=== PATIENT | male | born 1980 | race Caucasian/White ===

== ENCOUNTER 2016-07-13 13:19 | Inpatient (IN) | payer OTHER ==
[~2016-07-13] VITALS: Ht 182.9 cm; Wt 78.6 kg
[2016-07-13 13:20] VITALS: BP 124/81; PULSE 96; RESP 15; O2SAT 97
[2016-07-13] MEDS ORDERED: CEPH500C PO (13:24)
[2016-07-13] MEDS ORDERED: SULF1TAB7 PO (13:24)
[2016-07-13] MEDS ORDERED: Buprenorphine 2 mg SL Tablet SL ONE (14:50)
[2016-07-13 15:06] LABS: BASOPHILS % (AUTO) 0.5 % (0-3); EOSINOPHILS % (AUTO) 2.1 % (0-5); MONOCYTES % (AUTO) 12.3 % (4-12); Mean Corpuscular Volume 82.8 fL (81-100); NEUTROPHILS % (AUTO) 55.2 % (40-74); Platelet Count 324 bil/L (150-400)
--- NOTE | 2016-07-13 15:10 | ED.REPORT ---
HPI-Extremity Problem Lower Date of Service Jul 13, 2016 ED Provider: Brett Munson MD Patient is a 35 year old male who presents to the ED referred from Urgent Care complaining of L leg swelling onset 10 days ago. On 07/02/16 he was working on a barbed wire fence and obtained an abrasion across his L ankle. When he woke up the next day he had redness, pain, and swelling that progressively got worse. He was diagnosed with Cellulitus on 07/03/16 at Urgent Care and was treated with Keflex and Bactrim. He reports that his symptoms were clearing until 5 days ago when he was on his feet for an extended period of time and his swelling was exacerbated. He has tried to keep his leg elevated and stay off his feet to help reduce his swelling but his symptoms have persisted. Associated symptoms include L leg pain, subjective fevers, trouble walking, and diaphoresis . He denies chills, numbness, or any other symptoms. His US at Urgent Care did not show any blood clots. Patient is requesting admission with IV abx. He has had cellulitis from a bee sting 9 years ago that cleared without difficulty after several days of antibiotics. He does not know when his last tetanus shot was. Patient is also on diclofenac. Nursing Notes Stated Complaint: POSSIBLE CELLULITIS Chief Complaint: Extremity Trauma Nursing Notes Reviewed: Yes ([employer], [employer] reconciled for ABX - patient is on Suboxone 12/27 2x/day + ) Allergies: Coded Allergies: No Known Allergies (Verified Allergy, Unknown, 07/13/16) Scheduled Cephalexin (Cephalexin) 500 Mg Capsule 500 MG PO QID Sulfamethoxazole/Trimeth 800-160 mg (Bactrim DS) 1 Each Tablet 1 TABLET PO BID General Time Seen by MD: 15:04 Chief Complaint Leg injury left Hx Obtained From: Patient Arrived By: Walk-in Similar Sx Previous: Yes Past Medical History Past Medical History Notes: Patient been treated with Keflex and Bactrim since July 03 Past Medical History Current back pain per EMR Seizure in 2013 Ho narcotic abuse (no ho IVDA, now on suboxone maintenance from Dr. Derik Alonso) Past Surgical History Denies Smoking History Never Smoker, Unknown if Ever Smoker Social History hx of narcotic dependecy on stable Suboxone use. Denies IV drug use. Drug Use: Other Other Social History: Smokeless tobacco, Good social support Ambulatory Status Crutches Review of Systems Constitutional: Reports: Fever (Subjective ), Denies: Chills Musculoskeletal: Reports: Extremity pain (LLE), Extremity swelling (LLE) Skin: Reports Diaphoresis Neurologic: Reports: Problem walking, Denies: Numbness Complete sys rev & neg: except as marked. Physical Exam Initial Vital Signs Vital Signs (First) Date Time Temp Pulse Resp B/P Pulse Ox O2 Delivery O2 Flow Rate FiO2 07/13/16 13:20 36.3 96 15 124/81 97 Room Air Initial VS: Reviewed Head / Eyes: Atraumatic, Normocephalic Respiratory: No respiratory distress Cardiovascular: Intact distal pulses Skin: Warm, Dry Neurologic: Alert, Oriented, Nonfocal Psychiatric: Mood/affect normal, Behavior normal, Normal thought content Left Leg / Calf: Positive: Swelling present... Left mid calf through foot swollen and edematous. No redness, open wounds, or warmth. No surface cellulites. Tender throughout foot and ankle with mild tenderness over Achilles. Reduces dorsal plantar flexion. Good pulses. Difficultly bearing weight. Left Ankle: Positive: Swelling present..., Tenderness present... General/Constitutional: Awake, Alert, Well appearing Interpretation & Diagnostics Interpretation & Diagnostics: Duplex US today at Urgent Care negative for DVT Lab Results Interpretation Result Diagram: 07/13/16 1445 07/13/16 1445 Test 07/13/16 14:45 White Blood Count 3.8th/mm3 (3.8-10.1) Red Blood Count 4.72mil/mm3 (4.40-5.80) Hemoglobin 13.7g/dL (13.8-17.2) Hematocrit 39.1% (41.0-50.0) Mean Corpuscular Volume 82.8fL (81-100) Mean Corpuscular Hemoglobin 29.0pg (27.0-35.0) Mean Corpuscular Hemoglobin Concent 35.0% (32.0-37.0) Red Cell Distribution Width 12.5% (12.3-15.4) Platelet Count 324bil/L (150-400) Neutrophils (%) (Auto) 55.2% (40-74) Lymphocytes (%) (Auto) 29.6% (14-46) Monocytes (%) (Auto) 12.3% (4-12) Eosinophils (%) (Auto) 2.1% (0-5) Basophils (%) (Auto) 0.5% (0-3) Sodium Level 136mEq/L (134-144) Potassium Level 4.1mEq/L (3.5-5.2) Chloride Level 97mEq/L (97-108) Carbon Dioxide Level 25mmol/L (18-29) Blood Urea Nitrogen 16mg/dL (6-20) Creatinine 0.94mg/dL (0.76-1.27) Estimat Glomerular Filtration Rate 98mL/min (>59) Glucose Level 99mg/dL (60-99) Calcium Level 9.4mg/dL (8.5-10.1) Total Bilirubin 0.4mg/dL (0.0-1.2) Aspartate Amino Transf (AST/SGOT) 42U/L (0-50) Alanine Aminotransferase (ALT/SGPT) 50U/L (0-44) Alkaline Phosphatase 48U/L (25-150) Total Protein 7.4g/dL (6.4-8.4) Albumin 4.3g/dL (3.4-5.0) Lab Results Interpretation: CBC normal CMP normal Cultures not currently indicated-patient is not febrile, does not have a white count, and his are on 2 antibiotics for the past several Re-Eval/Medical Decision Med Decision/Clinical Course This is a 35-year-old male sent over from urgent care. Patient reports he suffered a scrape to his left ankle scrape is no longer visible-on July 02, and then he developed redness swelling and pain and was seen at urgent care the , at which point he was started on Keflex plus Bactrim. We improved, and the redness resolved, the wound is healed-but on Sunday started developing trouble swelling and pain. He thought he return to activities too soon, so backed off in This leg elevated-but the symptoms have not improved. He continues to have worsening pain, to be or swelling, unable to really bear weight, and he reports subjective fevers, and drenching sweats intermittently. He reports at present while sitting on the gurney has no pain, swelling when he tries to a believe maneuver that he has pain. On exam he is afebrile, and nontoxic. Dr. Marcano wrote for his maintenance dose of Suboxone in the department, which he takes chronically and this worked well for him. As have marked swelling, and some tenderness from the mid calf down to the ankle , there is swelling of the mid calf down to the ankle and the dorsum of the foot. All is not critically tender for me for the foot, most the pain is around the ankle and just superior. He can passively plantarflex and dorsiflex , but has pain with active movement. He has good pulses. There is no clinically evident abscess, others I see no overt warmth or erythema. An ultrasound as are been performed just prior to arrival is negative for DVT. The rest of exam is normal. Blood work is normal. However his symptoms are certainly concerning, DVTs now been excluded, and in the setting of fever, recent infection or deeper space infections in the differential, although he does not have hard findings. The plan at this point, is initiate parenteral therapy and antibiotics, while continuing to pursue the workup. At this point I discussed the case with the orthopedist, help determine the best imaging, and the plan is contrast MRI for further management. He is being admitted to the medicine service. Also plans to evaluate after the MRIs been completed and resulted. Source of Hx: Old records Re-Evaluation/Progress : Time of Eval: 15:25 Re-Evaluation/Progress Note: Discussed plan for admission. Patient understands and agrees with plan. All questions addressed at this time. Consultation #1: Referral / Consult Name: Neil Cunningham MD Consulted With: Orthopedic Call Returned at: 15:22 Clerical Aide: Will see patient, Agrees with eval, Agrees with plan Note: Discussed patient's case. Suggests MRI with contrast leg and ankle. Will follow up with patient after MRI. Consultation #2: Referral / Consult Name: Ankush Talbot MD Consulted With: Hospitalist Call Returned at: 15:57 Clerical Aide: Will see patient, Agrees with eval, Agrees with plan, Accepts admit Note: Discussed patient's case. Accepts admit. Differential Diagnosis: Negative: Abrasion, Achilles tendon rupture, Ankle dislocation, Arterial occlus/ischemia, Compartment syndrome (final evidence of compartment syndromes, compartments soft, there is no pain out of proportion at rest, there is no pallor or paresthesias), Intertrochanteric fractur, Knee disloc ant, Knee disloc post, Knee effusion, Knee ligament injury, Lesser trochant fracture, Subungual hematoma, Superficial thrombophleb, Venous thromboembolism Counseled Regarding: Diagnosis, Lab results, Need for admission Discharge & Departure Impression: Primary Impression: Leg swelling Additional Impression: Leg pain, left Disposition: ADMITTED TO HOSPITAL Referrals: Jackson Collier MD (PCP) Scribe Attestation Portions of this note were transcribed by David Mitchell. I, Dr. Munson personally performed the history, physical exam and medical decision-making; I reviewed and confirmed the accuracy of the information in the transcribed note. Signed by: David Mitchell 07/13/2016, [id number] copies to: Jackson Collier MD, Matthew F MD Jul 13, 2016 15:10 DAVID MITCHELL Jul 13, 2016 15:32
[2016-07-13] MEDS ORDERED: Vancomycin Dose per Pharmacist XX ONE (15:30)
[2016-07-13] MEDS ORDERED: TdaP Vaccine 0.5 mL Inj IM ONE (15:30)
[2016-07-13] MEDS ORDERED: Piperacillin-Tazo 3.375 Gm Inj 3.375 GM in Dextrose 5% Minibag Plus 50 ML IV ONE (15:30)
[2016-07-13] MEDS ORDERED: Vancomycin Inj 1,500 MG in 0.9% Sodium Chloride 500 ML IV ONE (15:42)
--- NOTE | 2016-07-13 15:46 | PCM.PHAPRO ---
Progress Patient is a 35 y.o. male receiving vancomycin for cellulitis. Concurrent abx include:zosyn. Based on patient parameters vancomycin will receive a one-time dose of 1500mg Please reconsult pharmacy if the patient is admitted and you wish for vancomycin therapy to continue. Thank you for the consult in the care of this patient. RTM PharmD Matthew Buitrago Jul 13, 2016 15:46
--- NOTE | 2016-07-13 16:02 | PCM.HPMED ---
Subjective Date of Service Jul 13, 2016 Primary Provider: Admitting Physician: Primary Care Physician: Jackson Collier MD Attending Physician: Chief Complaint: left leg cellulitis HISTORY was OBTAINED FROM PAT[facility]-mother [facility] History of present illness 35-year-old male, on 07/02/16 scraped medial left ankle [place]/ [place]bed [place] w/ subsequent erythema/swelling at medial left ankle hours thereafter, then seen in discharged with bactrim keflex, then improved swelling and able to walk without crutches, so then increased activity,but 07/09/16 complained of recurrent swelling, spreading erythema despite ongoing antibiotics and due to ongoing calf /simental erythema/swelling and w/ fevers and sweats, went to w/ u/s neg for DVT today then sent to ER today. pain w/ ROM of left ankle In ER vital signs stable, vanco nate, ER doc spoke to Dr Cunningham, pending MRI, vancomycin Zosyn. buprenorphine, tetanus injection today Review of Systems - none of the following - wt change/ HERNANDEZ / lightheaded / dizziness / / acid reflux / n/v/diarrhea / bleeding/bruising // change in voiding / rash elsewhere ambulates with crutches recently missed suboxone outpt script starting yesterday. 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, no boils, no adolescent useof abx for acne inpt rehab 04/2016 suboxone, hx of smoking heroine Allergies Coded Allergies: No Known Allergies (Verified Allergy, Unknown, 07/13/16) PMH Social History Hx Alcohol Use: No Hx Substance Use: Yes (IN RECOVERY FROM RX NARCOTICS ) Smoking Status: Never Smoker, Unknown if Ever Smoker Exam Vital Signs Vital Sign - Last Date Time Temp Pulse Resp B/P Pulse Ox O2 Delivery O2 Flow Rate FiO2 07/13/16 13:20 36.3 96 15 124/81 97 Room Air Lab and Diagnostics Labs Exam on admission NAD A and O x 3 mood affect WNL NC/AT no icterus no injected eyes EOMI PERRL /no pharyngeal lesions/ no oral lesions / hearing intact Supple neck CTAB equal chest rise / no accessory muscle use / speaks in full sentences / no rrw RRR S1 S2 / no mrg / 2+ radial pulses Soft nt nd + BS no hepatosplenomegaly no cyanosis no ecchymosis of lower extremities No rash / no jaundice VILLAREAL 2+ DT pulses bilateral, hair on legs bilateral symmetrical left foot dorsiflexion aspect through simental through medial ankle and calf w/ erythema, no open areas, edema mild right leg normal left groin mild lymphadenopathy LFT ALT 50 Imaging Caution: Report not yet finalized and possibly incomplete! PROCEDURE: US VEINOUS LEG DUPLEX UNILATERAL, LEFT INDICATIONS: PAIN TECHNIQUE: Real-time imaging, as well as color and pulse Doppler interrogation, were performed of the lower extremity deep veins from the inguinal ligament to the popliteal fossa. COMPARISON: None. FINDINGS: The deep veins are normally compressible, and free of intraluminal thrombus. Color and pulse Doppler demonstrate normal phasic intraluminal flow. There is normal augmentation response to distal compression maneuver. The lymph nodes. IMPRESSION: 1. No deep venous thrombosis identified within the left lower extremity. 2. Left groin lymph nodes present largest measuring 1.0 cm. Recommend clinical correlation and management. Result Diagram: 07/13/16 1445 07/13/16 1445 Assessment & Plan Active issues and reason for admission Left leg cellulitis with lymphadenopathy, failing outpt antibiotics. -- Pending Dr. Cunningham's MRI read --vanco rocephine cover strep/staph --ad yvette ambulate --pain ketoralac/TUMS tylenol suboxone Mild normocytic anemia --monitor ALT elevated --liver u/s, hepatitis panel pending Chronic issues known prior to admission, present on admission chornic back pain narcotic abuse in remission tobacco chew --cont suboxone --prn nicotine patch Diet regular DVT prophylaxis lovenox ambulate Code full Disposition inpt Assessment and plan were discussed with patient family. Ankush Talbot MD Jul 13, 2016 16:02
--- NOTE | 2016-07-13 16:45 | DRSVH ---
PROCEDURE: X-RAY LEFT FOOT COMPLETE, MINIMUM THREE VIEWS ([id number]) INDICATIONS: pain TECHNIQUE: 3 views of the foot were acquired. COMPARISON: None. FINDINGS: Bones: No fractures or dislocations. No suspicious bony lesions. There is a small corticated ossic le lateral to the first metatarsophalangeal joint, either an accessory ossicle or sequelae of old inj ury. Mild first metatarsophalangeal joint degeneration. Soft tissues: No tibiotalar joint effusion. Achilles tendon appears normal. IMPRESSION: No fracture or dislocation. Dictated by: Felicia Winter M.D. on 07/13/2016 at 16:10 Approved by: Felicia Winter M.D. on 07/13/2016 at 16:11
[2016-07-13] MEDS ORDERED: 0.9% Sodium Chloride 1,000 ML IV SCH (17:22)
[2016-07-13] MEDS ORDERED: Alum-Mag Hydrox-Simeth 30 mL Suspension PO PRN (17:25)
[2016-07-13] MEDS: Vancomycin Dose per Pharmacist XX SCH (17:25)
[2016-07-13 17:26] VITALS: BP 152/91; PULSE 84; RESP 17; O2SAT 100
[2016-07-13 17:30] VITALS: BP 109/55; PULSE 83; RESP 17; O2SAT 98
--- NOTE | 2016-07-13 18:16 | DRSVH ---
PROCEDURE: MRI TIBIA FIBULA LEFT WITH AND WITHOUT CONTRAST ([id number]) INDICATIONS: pain, swelling fever refract to ABX TECHNIQUE: Noncontrast coronal T1 spin echo and STIR, sagittal T1 spin echo with fat saturation and STIR, axial T1 spin echo and T2 fast spin echo with fat saturation. After the administration of contrast, axial/ sagittal/coronal T1 spin echo with fat saturation through the left leg. COMPARISON: None. FINDINGS: Image quality: Good. Bones: The visualized bone marrow demonstrates normal signal on all sequences. The overlying cortex appears intact. No abnormal intraosseous enhancement. Soft tissues: No soft tissue masses are visualized. The scanned muscles demonstrate normal overall bulk and internal signal. Subcutaneous tissues show prominent amount of edematous change. This contr ast however no focal enhancement is appreciated. No loculated fluid collections are seen. IMPRESSION: There is diffuse subcutaneous edematous change in the leg from the knee to the ankle. No abnormal focal fluid collections are seen. No muscle abnormality is appreciated. No evidence for marrow edema or infection is seen. Dictated by: Derik Culver M.D. on 07/13/2016 at 18:06 Approved by: Derik Culver M.D. on 07/13/2016 at 18:15
[2016-07-13 18:52] VITALS: BP 109/55; PULSE 83; RESP 17; O2SAT 98
--- NOTE | 2016-07-13 19:43 | DRSVH ---
PROCEDURE: US ABDOMEN ([id number]) INDICATIONS: liver evaluation, due to transaminitis TECHNIQUE: Real-time scanning was performed of the abdominal and retroperitoneal organs, with image documentatio n. COMPARISON: None. FINDINGS: Liver: Liver is normal in size at 16.2 cm. and homogeneous in echotexture. Gallbladder: Gallbladder is normal in appearance. Wall thickness is normal. No pericholecystic fluid is found. No stones or sludge is found. Biliary ducts: Intrahepatic bile ducts are non-dilated. Extrahepatic bile duct caliber measures 2.7 mm. Normal is 6-7 mm or less in diameter, or 10 mm or less post-cholecystectomy. Pancreas: The head and body of the pancreas are considered normal. Tail is partially obscured by ignacia l gas. Spleen: Spleen is enlarged and measures 14.2 x 4.9 x 14.0 cm for a volume of 500 cubic centimeters. Kidneys: Kidneys are normal in size and echotexture. Right kidney measures 10.7 cm long; left kidne y measures 11.2 cm long. No hydronephrosis or nephrolithiasis. No solid masses. Aorta: The entire abdominal aorta is normal in caliber at less than 3 cm. Iliacs: Proximal common iliac arteries are normal in caliber at less than 2.5 cm. both measured 12 m m. IVC: Intrahepatic inferior vena cava is patent. Miscellaneous: No free abdominal fluid. IMPRESSION: 1. Liver and gallbladder are considered normal. 2. Splenic enlargement. Flow is towards the liver in the portal vein. Dictated by: Derik Culver M.D. on 07/13/2016 at 19:40 Approved by: Derik Culver M.D. on 07/13/2016 at 19:43
[2016-07-13 19:52] VITALS: BP 128/74; PULSE 80; RESP 18; O2SAT 99
[2016-07-13] MEDS ORDERED: BUPR1FIL3 SL (20:00)
--- NOTE | 2016-07-13 20:46 | PCM.PHAPRO ---
Progress Date of Service: Jul 13, 2016 left leg cellulitis HISTORY was OBTAINED FROM PATIENT-mother / [facility] NOTES History of present illness 35-year-old male, on 07/02/16 scrap[place] medial left ankle [place] w/ subsequent erythema/swelling at medial left ankle hours thereafter, then seen in UC discharged with bactrim keflex, then improved swelling and able to walk without crutches, so then increased activity,but 07/09/16 complained of recurrent swelling, spreading erythema despite ongoing antibiotics and due to ongoing calf /simental erythema/swelling and w/ fevers and sweats, went to w/ u/s neg for DVT today then sent to ER today. pain w/ ROM of left ankle In ER vital signs stable, lynette sullivan, ER doc spoke to Dr Cunningham, pending MRI, vancomycin Zosyn. buprenorphine, tetanus injection today Review of Systems - none of the following - wt change/ HERNANDEZ / lightheaded / dizziness / / acid reflux / n/v/diarrhea / bleeding/bruising // change in voiding / rash elsewhere ambulates with crutches recently missed suboxone outpt script starting yesterday. 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 Give vancomycin 1000 mg Q8H. Check trough prior to 4th dose (scheduled for @ 2300). Pharmacy to continue to monitor and dose vancomycin. Thank you, Penelope Dumont Pharmacist Penelope Dumont Jul 13, 2016 20:46
[2016-07-13] MEDS: cefTRIAXone Inj 2,000 MG in Dextrose 5% Minibag Plus 50 ML IV SCH (21:17)
[2016-07-13] MEDS: 0.9% Sodium Chloride 1,000 ML IV SCH (21:17)
[2016-07-13] MEDS: Buprenorphine 2 mg SL Tablet SL SCH (21:18)
[2016-07-13] MEDS: Vancomycin Inj 1,000 MG in IV Premix 1 EACH IV SCH (23:33)
[2016-07-14 00:53] VITALS: BP 115/71; PULSE 68; RESP 18; O2SAT 98
[2016-07-14] MEDS: 0.9% Sodium Chloride 1,000 ML IV SCH ×3 (01:22→17:22)
--- NOTE | 2016-07-14 04:25 | NUR ---
Admit Patient arrived to [facility] room 1029 around 1900. A&Ox3, answering questions appropriately. Admit and med rec completed with patient & his mom. Dr. Talbot notified about updated Suboxone dosing and patients request for second dose @ HS (first dose given in ER). Order received and given. States pain is tolerable to left leg @ rest and is a 3/10. Redness outlined in ER. No advancement noted this shift. Oriented to room and call light.
[2016-07-14 05:48] VITALS: BP 106/67; PULSE 73; RESP 18; O2SAT 99
[2016-07-14 07:01] LABS: BASOPHILS % (AUTO) 0.6 % (0-3); EOSINOPHILS % (AUTO) 4.5 % (0-5); MONOCYTES % (AUTO) 11.3 % (4-12); Mean Corpuscular Volume 84.5 fL (81-100); NEUTROPHILS % (AUTO) 46.6 % (40-74); Platelet Count 266 bil/L (150-400)
[2016-07-14] MEDS: Vancomycin Inj 1,000 MG in IV Premix 1 EACH IV SCH ×2 (07:45→15:44)
[2016-07-14] MEDS: Buprenorphine 2 mg SL Tablet SL SCH ×2 (07:46→20:17)
[2016-07-14] MEDS: Vancomycin Dose per Pharmacist XX SCH (07:46)
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
[2016-07-14] MEDS: cefTRIAXone Inj 2,000 MG in Dextrose 5% Minibag Plus 50 ML IV SCH ×2 (10:18→22:03)
[2016-07-14 12:25] VITALS: BP 121/56; PULSE 70; RESP 16; O2SAT 98
--- NOTE | 2016-07-14 15:02 | PCM.PNMED ---
Subjective Date of Service Jul 14, 2016 Subjective Follow-up for lower extremity cellulitis. Patient seen and examined at bedside. Interval development. Swelling has decreased left lower extremity still very painful and edematous Exam Vital Signs Vital Sign - Last Date Time Temp Pulse Resp B/P Pulse Ox O2 Delivery O2 Flow Rate FiO2 07/14/16 12:25 36.4 70 16 121/56 98 Room Air Intake and Output 07/13/16 07/13/16 07/14/16 Cumulative From/Thru 15:00 23:00 07:00 07/13/16 13:20 - 07/14/16 06:26 Intake Total 1000 ml 1943 ml 2943 ml Balance 1000 ml 1943 ml 2943 ml Intake Oral 500 ml 500 ml IV Total 1000 ml 1443 ml 2443 ml # Voids 3 3 # Bowel Movements 0 0 Exam General: Well-nourished male in bed comfortably . Chest: Normal respiratory effort Lung: Clear bilaterally, no wheezing Heart : Regular rate and rhythm Abdomen: Is benign Extremity: Left ankle is swollen, erythematous, while touch. Neuro : Grossly nonfocal IVs and Medications Medications Reviewed: Medications were reviewed in detail Lab and Diagnostics Result Diagram: 07/14/16 0635 07/13/16 1445 Assessment & Plan 1. Left leg cellulitis with lymphadenopathy, failing outpt antibiotics. -- Pending Dr. Cunningham's MRI read -- Continue vanco and rocephine --ad yvette ambulate -- Ultrasound of the lower extremity is normal. No DVT Mild normocytic anemia : Chronic --monitor ALT elevated : Mild AST elevation. Ultrasound of the abdomen is negative but showed enlarged spleen. Enlarged spleen is likely due to ongoing infection. I discussed the patient about repeat ultrasound of the abdomen to follow-up as outpatient approximately in 2-3 weeks -- Chronic issues known prior to admission, present on admission chornic back pain narcotic abuse in remission tobacco chew --cont suboxone --prn nicotine patch Diet regular DVT prophylaxis lovenox ambulate Patient patient will need at least another 24 hours prior antibiotics. MRI of the lower extremity done on admission is pending. Should anticipate within 24-48 hours Pain Evaluation: Adequate Pain Control Time spent 25 minutes Ousmane Magallanes MD Jul 14, 2016 15:02
--- NOTE | 2016-07-14 19:19 | NUR ---
cellulitus, activity pt. left foot swollen and pink, tender to touch; refused prn pain medication today, stated pain was tolerable. Pt. up to br ind; hopping on right foot. Pt. A&Ox3; drowsy but easy to awaken; slept most of the day.
[2016-07-14 20:39] VITALS: BP 111/68; PULSE 81; RESP 18; O2SAT 99
[2016-07-14] MEDS ORDERED: Vancomycin Serum Trough XX ONE (23:00)
[2016-07-15] MEDS: 0.9% Sodium Chloride 1,000 ML IV SCH ×2 (00:32→09:22)
--- NOTE | 2016-07-15 01:05 | PCM.PHAPRO ---
Progress Date of Service: Jul 15, 2016 Requesting Provider: Ankush Talbot MD cellulitis on left leg, failed outpt po Bactrim and Keflex A/ - 35 y/o male patient received 3 doses of Vancomycin therapy to treat cellulitis on his left leg. The infected site is still swollen and painful to touch. - There was no lab since first day admission 07/13, and no cultures ordered. Per Dr. Neil Cunningham, no surgical intervention is needed. - Vancomycin trough is at 17.8 with target 10-15 for cellulitis, comitant abx: ceftriaxone P/ - Change Vancomycin 1G iv q12h, starts @0400 today 07/15. Estimated trough should be around 13. No new trough ordered. - Daytime pharmacist will consult with provider to determine whether Vancomycin therapy should be continued Thank you Justo Leach, PharmD, [facility] Jimenez Leach Jul 15, 2016 01:05
[2016-07-15 01:13] LABS: Hepatitis A Antibody IgM Negative (Negative); Hepatitis B Core Antibody IgM Negative (Negative)
[2016-07-15] MEDS ORDERED: Vancomycin Inj 1,000 MG in IV Premix 1 EACH IV SCH (03:30)
--- NOTE | 2016-07-15 04:18 | NUR ---
Activity/Pain Patient in bed all of shift thus far. Rating left leg pain around a 3/10. Refused offer for pain medications, states the scheduled Suboxone will be adequate for pain management. Resting with eyes closed almost all of shift. Education provided this shift, again, to use urinal and avoid flushing urinary output, so staff can get adequate output measurements. Still seems hesitant and have staff assess/measure urinary output despite education.
[2016-07-15] MEDS ORDERED: 0.9% Sodium Chloride 250 ML ONE (04:46)
[2016-07-15 05:01] VITALS: BP 104/59; PULSE 66; RESP 18; O2SAT 99
[2016-07-15] MEDS: Vancomycin Dose per Pharmacist XX SCH (08:30)
[2016-07-15] MEDS: Buprenorphine 2 mg SL Tablet SL SCH (09:20)
[2016-07-15] MEDS: cefTRIAXone Inj 2,000 MG in Dextrose 5% Minibag Plus 50 ML IV SCH (09:21)
--- NOTE | 2016-07-15 10:32 | PCM.DIMED ---
Discharge Instructions Date of Service Jul 15, 2016 Dates of Hospitalization Jul 13, 2016 at 17:29 Discharge Diagnosis Discharge Diagnosis Left LE cellulitis , Enlarged spleen , Mild normocytic anemia Diet No restrictions Activity No restrictions Call your provider Fever or Chills Patient Instructions Ultrasounds in 3-4 weeks with primary care doctor to follow up enlarged spleen Follow-up plan Ultrasounds in 3-4 weeks with primary care doctor to follow up enlarged spleen Follow-up with PCP in: 1 week (Primary Care Doctor ) Ousmane Magallanes MD Jul 15, 2016 10:32
[2016-07-15] MEDS ORDERED: AMOX-366 PO (10:34)
[2016-07-15] MEDS ORDERED: NICO1PAT5 TOPICAL (10:34)
--- NOTE | 2016-07-15 12:17 | PCM.DC.MED ---
Discharge Summary Date of Service Jul 15, 2016 Dates of Hospitalization Date of Hospital Admission Jul 13, 2016 at 17:29 Date of Discharge: Jul 15, 2016 Providers: Admitting Physician: Ankush Talbot MD Primary Care Physician: Jackson Collier MD Attending Physician: Ankush Talbot MD Diagnosis at Time of Discharge Diagnosis at Time of Discharge Left LE cellulitis , Enlarged spleen , Mild normocytic anemia Consultations None Procedures XRay, CTs & MRIs Abdominal ultrasound: 1. Liver and gallbladder are considered normal. 2. Splenic enlargement. Flow is towards the liver in the portal vein. Left foot x-ray : No fracture or dislocation. Brief History 35 years old admitted to the hospital for intravenous IV antibiotics for possible cellulitis of the left lower extremity after he failed outpatient treatment with oral antibiotics Hospital Course 1. Left leg cellulitis : Patient was admitted for IV antibiotics after he failed outpatient oral antibiotics. He responded to ceftriaxone and vancomycin. He will complete a seven-day course of Augmentin 875 mg twice a day -- Ultrasound of the lower extremity is normal. No DVT Mild normocytic anemia : Chronic ALT elevated : Mild AST elevation. Ultrasound of the abdomen showed enlarged spleen. Enlarged spleen is likely due to ongoing infection. I discussed the patient about repeat ultrasound of the abdomen to follow-up as outpatient approximately in 2-3 weeks -- Chronic issues known prior to admission, present on admission chornic back pain narcotic abuse in remission tobacco chew --cont suboxone. --prn nicotine patch . Smoking cessation counseling provided Patient is discharged home in stable condition. He will complete a seven-day course of Augmentin 875 mg twice a day Exam Vital Signs (Last) Date Time Temp Pulse Resp B/P Pulse Ox O2 Delivery O2 Flow Rate FiO2 07/15/16 05:01 36.4 66 18 104/59 99 Room Air Exam General: Well-nourished male in bed comfortably . Neck: Supple, trachea is midline Lung: Clear bilaterally, no crackles Heart : Regular rate and rhythm, no gallop or murmur Abdomen: Soft non-tender non-distended. No palpable mass Extremity: Left ankle swelling is resolved. No erythema Neuro : Grossly non focal Test 07/13/16 14:45 07/14/16 06:35 07/14/16 22:45 07/15/16 06:15 Hemoglobin A1c 5.5% (4.8-5.6) Total Bilirubin 0.4mg/dL (0.0-1.2) Aspartate Amino Transf (AST/SGOT) 42U/L (0-50) Alanine Aminotransferase (ALT/SGPT) 50U/L (0-44) Alkaline Phosphatase 48U/L (25-150) Total Protein 7.4g/dL (6.4-8.4) Albumin 4.3g/dL (3.4-5.0) White Blood Count 3.5th/mm3 (3.8-10.1) Red Blood Count 4.27mil/mm3 (4.40-5.80) Hemoglobin 12.4g/dL (13.8-17.2) Hematocrit 36.1% (41.0-50.0) Mean Corpuscular Volume 84.5fL (81-100) Mean Corpuscular Hemoglobin 29.0pg (27.0-35.0) Mean Corpuscular Hemoglobin Concent 34.3% (32.0-37.0) Red Cell Distribution Width 12.3% (12.3-15.4) Platelet Count 266bil/L (150-400) Neutrophils (%) (Auto) 46.6% (40-74) Lymphocytes (%) (Auto) 37.0% (14-46) Monocytes (%) (Auto) 11.3% (4-12) Eosinophils (%) (Auto) 4.5% (0-5) Basophils (%) (Auto) 0.6% (0-3) Hepatitis A IgM Antibody Negative (Negative) Hepatitis B Surface Antigen Negative (Negative) Hepatitis B Core IgM Antibody Negative (Negative) Hepatitis C Antibody >11.0s/co ratio Hepatitis C Antibody Comment Comment (.) Vancomycin Level Trough 17.8mcg/mL Sodium Level 138mEq/L (134-144) Potassium Level 4.0mEq/L (3.5-5.2) Chloride Level 100mEq/L (97-108) Carbon Dioxide Level 25mmol/L (18-29) Blood Urea Nitrogen 12mg/dL (6-20) Creatinine 0.88mg/dL (0.76-1.27) Estimat Glomerular Filtration Rate 105mL/min (>59) Glucose Level 132mg/dL (60-99) Calcium Level 9.0mg/dL (8.5-10.1) Discharge Medications Discharge Medications Amoxicillin/Clav K 875-125 mg (Augmentin 875-125 mg) 1 Each Tablet 1 TABLET PO TID Prescribed by: OUSMANE MARIE MD Buprenorphine HCl/Naloxone HCl (Suboxone 8 mg-2 mg Sl Film) 1 Each Film 1 EACH SL BID (Reported) As needed Nicotine 14 mg/24 hr Patch (Nicotine 14 mg/24 hr Patch) 1 Each Patch.td24 1 PATCH TOPICAL DAILY PRN PRN For Tobacco Withdrawal Prescribed by: OUSMANE MARIE MD Followup Plan Disposition: Home Follow-up plan Ultrasounds in 3-4 weeks with primary care doctor to follow up enlarged spleen Discharge Diet: No restrictions Discharge Activity: No restrictions Patient Instructions Ultrasounds in 3-4 weeks with primary care doctor to follow up enlarged spleen Follow-up with PCP in: 1 week (Primary Care Doctor ) Time spent 35 minutes. Patient seen and examined on the day of discharge. All aspect of discharge discussed with patient in details and all his questions and concerned were addressed. Ousmane Marie MD Jul 15, 2016 12:17
--- NOTE | 2016-07-15 13:50 | NUR ---
Social work note - Assessment and discharge Matthew Love is a 35 yr old who was admitted for leg infection. EMR reviewed: [facility] has [facility], his PCP is Dr Collier. Readmit score is 2. Pt lives at home in [place] with his . 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 Independent at baseline. Pt is on suboxone for narcotic addiction, in recovery. Pt will d/c home with and no anticipated needs. Plan: Home with in POV> EDWIN Sen
--- NOTE | 2016-07-15 15:33 | NUR ---
Discharge To home with mother via private vehicle at 15:20. Steady transfer to wheelchair. IV discontinued intact. Pt expresses understanding of all discharge instructions, including meds and followup. Rx sent with pt.
--- NOTE | 2016-07-26 15:23 | DRSVH ---
PROCEDURE: X-RAY LEFT TIBIA/FIBULA, TWO VIEWS ([id number]) INDICATIONS: pain TECHNIQUE: 2 views of the tibia and fibula were acquired. COMPARISON: None. FINDINGS: Bones: No fractures or dislocations. No suspicious bony lesions. Soft tissues: No suspicious soft tissue calcifications or masses. IMPRESSION: No fracture or dislocation. Dictated by: Felicia Winter M.D. on 07/13/2016 at 16:09 Approved by: Felicia Winter M.D. on 07/13/2016 at 16:09
== END 2016-07-15 15:28 | disposition home or self-care (01) | DRG 603 ==
LOC: SED 13:19 → OSC 17:29 → OBSVTOIN 17:29 → OSC 18:53
PROVIDERS: ADMIT Urology; ATTEND Urology
DX: L03.116 Cellulitis of left lower limb (principal); F19.21 Other psychoactive substance dependence, in remission; M54.9 Dorsalgia, unspecified; F17.220 Nicotine dependence, chewing tobacco, uncomplicated; R16.1 Splenomegaly, not elsewhere classified; D64.9 Anemia, unspecified; Z79.899 Other long term (current) drug therapy